=== PATIENT | female | born 1955 | race Asian ===

== ENCOUNTER 2020-04-12 18:29 | Inpatient (IN) | payer BC, MEDICARE ==
[~2020-04-12] VITALS: Ht 154.9 cm; Wt 52.2 kg
[2020-04-12 23:53] VITALS: BP 119/74
--- NOTE | 2020-04-12 23:53 | NUR ---
GPS ADMISSION NOTE, RECEIVED PATIENT FROM [facility] / [place]. PATIENT ARRIVED ON THIS UNIT AT 2353 VIA STRETCHER WITH 2 EMT ESCORTS. PATIENT ADMITTED ON A 5150 HOLD FOR DTS. PER HOLD PATIENT INTENTIONALLY OVERDOSE ON AMOXICILLIN. AFTER HAVING AN ARGUMENT WITH HER AND DAUGHTER. PATIENT DID NOT CALL FOR HELP AFTER OVERDOSE. PATIENT WAS FOUND UNRESPONSIVE BY HER DAUGHTER. 911 WAS CALLED BY DAUGHTER AND PATIENT WAS TAKEN TO [facility]. PATIENT WAS NOT ABLE TO CONTRACT FOR SAFETY AT THAT TIME. THE 5150 WAS REVIEWED AND THE DOCUMENTATION IN THE 5150 HOLD APPEARS TO REFLECT THE PRESENTATION OF THE PATIENT. UPON FACE TO FACE ASSESSMENT PATIENT IS NOTED TO BEING, DEPRESSED, SAD, WELL GROOMED, ORGANIZED, CALM, COOPERATIVE, AND NEEDS LITTLE REDIRECTION. PATIENT IS CURRENTLY LYING IN BED AWAKE, HAS NO S/S OR COMPLAINTS OF PAIN. PATIENT IS DISPLAYING NO S/S OF APPARENT DISTRESS. PATIENT BREATHING IS UNLABORED WITH EQUAL RISE AND FALL OF THE CHEST. PATIENT IS ALERT AND ORIENTATED X 4 ON ROOM AIR. PATIENT ASSISTED WITH TURING AND REPOSITIONING Q2HR AND PRN FOR COMFORT AND CIRCULATION. PATIENT HAS NO NEEDS AT THIS TIME. PATIENT DENIES SUICIDE IDEATIONS AND HOMICIDAL IDEATIONS AT THIS TIME. PATIENT REFUSED TO SIGN ALL NECESSARY PAPER WORK. PATIENT ADVISED OF HER HOLD AND PATIENT RIGHTS BOOKLET GIVEN. PATIENT IS UNDER THE PSYCHIATRIC CARE OF DR. NARANJO AND THE MEDICAL CARE OF DR TALLEY. PATIENT BELONGINGS WERE INVENTORIED AND CHECKED FOR CONTRABAND. ALL CONTRABAND REMOVED AND STORED IN PATIENT HALLWAY LOCKER. PATIENT ADVANCED DIRECTIVES PREFERENCE, IMMUNIZATIONS QUESTIONER, NECESSARY PAPERWORK COMPLETED. PATIENT REFUSED SKIN ASSESSMENT AT THIS TIME. PATIENT ORIENTATED TO ROOM, FLOOR, AND STAFF WITH ALL QUESTIONS ANSWERED. PATIENT HAD INFLUENZA SHOT LAST FEBRUARY AND REFUSED A PNEUMONIA SHOT. OFFER THREE TIMES AND STILL PATIENT REFUSED STATING, " NO I LIKE TO DO THAT SHOT ELSE WHERE ON MY OWN TIME ". EDUCATED THIS PATIENT ON THE RISKS AND BENEFITS OF HAVING A PNEUMONIA SHOT. PATIENT EDUCATED ON THE USE OF THE CALL VU. PATIENT BED SIDE RAILS ARE UP X 2 FOR SAFETY. PATIENT BED IS LOCKED, LOW, AND I WILL CONTINUE TO MONITOR THIS PATIENT Q 15 MIN WITH THE HELP OF STAFF TO MAINTAIN SAFETY.
[2020-04-13] MEDS ORDERED: ATOR20TA PO (01:13)
[2020-04-13] MEDS ORDERED: MAGNESIUM HYDROXIDE 30 ML UDC PO PRN (01:30)
[2020-04-13] MEDS ORDERED: BLOOD SUGAR DIAGNOSTIC 1 EACH STRIP IN ONE (01:30)
[2020-04-13] MEDS ORDERED: ACETAMINOPHEN 325 MG TABLET PO PRN (01:30)
[2020-04-13] MEDS ORDERED: MAG HYDROX/AL HYDROX/SIMETH 30 ML UDC PO PRN (01:30)
[2020-04-13] MEDS ORDERED: ZOLPIDEM TARTRATE 5 MG TABLET PO PRN (01:30)
[2020-04-13] MEDS ORDERED: LORAZEPAM 0.5 MG TABLET PO PRN ×2 (01:30→13:30)
[2020-04-13 08:00] VITALS: BP 122/50
--- NOTE | 2020-04-13 08:57 | NUR ---
RN-CO: DR REHMAN MADE AWARE TO RECONCILE HOME MEDICATIONS OF PT.
--- NOTE | 2020-04-13 09:17 | NUR ---
SW Family Contact: This SW spoke with patient's Soon ([phone]) and daughter Orion at the same time. This SW explained treatment plan and discharge plan.
--- NOTE | 2020-04-13 09:17 | NUR ---
SW Initial Discharge: [place] [address] [place] [address]. Patient Soon ([phone]) is involved in patient's care. Per , he would want pt back home when pt is stable. This SW will work with MD and treatment team to help coordinate discharge.
--- NOTE | 2020-04-13 12:02 | NUR ---
RN-CO: Patient was seen by Dr Han Middleton
[2020-04-13] MEDS: ESCITALOPRAM OXALATE (10 MG) 10 MG TABLET PO SCH ×2 (14:00→14:33)
--- NOTE | 2020-04-13 14:37 | NUR ---
RN-CO: Patient refused Lexapro. She said " I have lucho in [place], I don't need it."
[2020-04-13 16:00] VITALS: BP 115/69
--- NOTE | 2020-04-13 16:03 | NUR ---
UR NOTE: Auth# [id number] obtained from Sharon Brito with [employer] @ [phone] . Days approved are based on Medical necessity. Per Sharon Brito she stated she will approve pt. This LORI sent clinicals to [phone] and [phone]. Addendum: 04/13/20 at 1604 by LORI MORAN Extension number [phone]
--- NOTE | 2020-04-13 19:30 | NUR ---
GPS RN NOTE, RECEIVED PATIENT AWAKE AND IN BED, NO S/S OR COMPLAINTS OF PAIN AT THIS TIME. PATIENT IS DISPLAYING NO S/S OF APPARENT DISTRESS AT THIS TIME. PATIENT BREATHING IS UNLABORED WITH EQUAL RISE AND FALL OF THE CHEST. PATIENT IS ALERT AND ORIENTED X 3 ON ROOM AIR WITH A SPO2 95%. PATIENT IS COMPLIANT WITH MEDICATIONS, DEPRESSED, CALM, AND COOPERATIVE. PATIENT DENIES SUICIDAL AND HOMICIDAL IDEATIONS AT THIS TIME. PATIENT ASSISTED WITH TURNING AND REPOSITIONING Q2HR AND PRN FOR COMFORT AND CIRCULATION. PATIENT HAS NO NEEDS AT THIS TIME. PATIENT EDUCATED ON THE USE OF THE CALL VU. PATIENT BED SIDE RAILS UP X 2 FOR SAFETY. PATIENT BED IS LOCKED, LOW, WITH BED ALARM ON. WILL CONTINUE TO MONITOR THIS PATIENT Q15 MINUTES WITH THE HELP OF STAFF TO MAINTAIN SAFETY.
[2020-04-13 20:06] VITALS: BP 129/76
[2020-04-13 20:44] LABS: BILIRUBIN,URINE NEGATIVE (NEGATIVE); COLOR,URINE YELLOW (YELLOW); LEUKOCYTE ESTERASE ,URINE MODERATE (NEGATIVE); NITRITE, URINE POSITIVE (NEGATIVE); PROTEIN,URINE 100 mg/dl (NEGATIVE); UGLUCOSE NEGATIVE (NEGATIVE); UROBILINOGEN,URINE 0.2 EU/dL (0.2)
[2020-04-13 20:57] LABS: BACTERIA,URINE 4+ /HPF (None Seen); RBC,URINE 51-80 /HPF (0-2); SQUAMOUS EPITHELIAL CELL,UR 0-2 /HPF (None Seen); WBC,URINE TOO NUMEROUS TO COUN /HPF (0-3)
[2020-04-13] MEDS: ATORVASTATIN 10 MG TABLET PO SCH (21:16)
--- NOTE | 2020-04-13 22:34 | NUR ---
GPS RN NOTE, PATIENT UA RESULTS AR FOLLOWS URINE BACTERIA 4 +, URINE WBC ARE TOO NUMEROUS TO COUNT, URINE NITRITE POSITIVE, AND URINE OCCULT BLOOD LARGE. PAGED [facility] AND INFORMED MITCHELL TALLEY DNP OF MY FINDINGS. MITCHELL TALLEY DNP ORDERED KEFLEX 500MG PO BID X 7 DAYS AND TO GIVE THE FIRST DOSE NOW. ALL ORDERS NOTED AND CARRIED OUT. WILL CONTINUE TO MONITOR THIS PATIENT.
[2020-04-13] MEDS: CEPHALEXIN MONOHYDRATE 250 MG CAPSULE PO SCH (23:15)
[2020-04-14 08:06] LABS: BASOPHILS % (AUTO) 0.3 % (0.0-2.0); EOSINOPHILS % (AUTO) 0.2 % (0.0-6.0); HEMATOCRIT 41 % (33-45); HEMOGLOBIN 13.3 g/dL (11.5-14.8); LYMPHOCYTES % (AUTO) 20.5 % (20.0-44.0); MEAN CORPUSCULAR HGB CONC 33 g/dl (31.0-36.0); MEAN CORPUSCULAR VOLUME 92 fL (82-100); MONOCYTES # (AUTO) 0.2 /CMM (0.1-1.30); MONOCYTES % (AUTO) 4.3 % (2.0-12.0); NEUTROPHILS # (AUTO) 3.6 /CMM (1.8-8.9); NEUTROPHILS % (AUTO) 74.7 % (43.0-81.0); PLATELET COUNT (AUTO) 155 /CMM (150-450); RED BLOOD CELL COUNT(AUTO) 4.39 MIL/uL (4.0-5.2); WHITE BLOOD COUNT (AUTO) 4.9 K/uL (4.3-11.0)
[2020-04-14] MEDS: CEPHALEXIN MONOHYDRATE 250 MG CAPSULE PO SCH ×2 (08:13→16:13)
[2020-04-14] MEDS: ESCITALOPRAM OXALATE (10 MG) 10 MG TABLET PO SCH ×2 (08:17→09:05)
[2020-04-14 08:18] LABS: CALCIUM, SERUM 9.1 mg/dL (8.5-10.1); CREATININE 0.7 mg/dL (0.6-1.3); POTASSIUM 3.6 mmol/L (3.5-5.1)
--- NOTE | 2020-04-14 09:07 | NUR ---
GPS RN NOTES PATIENT EARLIER REFUSED HER LEXAPRO 5MG P.O., DR NARANJO CAME AND SPOKE TO PT TO TAKE THE MEDICINE AND SHE AGREED. LEXAPRO 5MG WAS GIVEN. WILL CONTINUE TO MONITOR.
[2020-04-14 09:59] VITALS: BP 131/68
--- NOTE | 2020-04-14 10:22 | NUR ---
UR NOTE: Auth# [id number] obtained from Sharon Brito with [facility] @ [phone] extension [phone], . Days approved are based on Medical necessity. Per Sharon Brito she stated she will approve pt. This SW sent clinicals to [phone] and [phone]. This SW left a voicemail that clinicals were sent and if Sharon can call back to confirm.
--- NOTE | 2020-04-14 13:10 | NUR ---
RN NOTES PATIENT SEEN BY DR NARANJO THIS MORNING AND PLACED PT ON 14DAY HOLD( 9316).
[2020-04-14 16:37] VITALS: BP 112/78
[2020-04-14 19:55] VITALS: BP 137/79
[2020-04-14] MEDS: ATORVASTATIN 10 MG TABLET PO SCH (21:23)
--- NOTE | 2020-04-14 22:00 | NUR ---
RN NOTES : PT. C/O LEFT ARM RASH , MITCHELL TALLEY IN THE UNIT AND NOTIFIED TO HIM, NO NEW ORDERS GIVEN , WILL CONTINUE TO MONITOR.
--- NOTE | 2020-04-15 06:30 | NUR ---
RN NOTES : PT. TOOK SHOWER AND REPORTED RASH GETTING BETTER , PT. DENIES ANY PAIN DISCOMFORT AND RESTING WELL IN SHIFT. WILL CONTINUE TO MONITOR.
--- NOTE | 2020-04-15 06:44 | NUR ---
GPS RN NOTES: PT. RESTING IN HER ROOM, CALM NOTED AT THIS TIME . NO S/S OF DISTRESS NOTED . PT. CALM COOPERTIVE,NO CHANGE OF CONDITION NOTED ,AND NO BEHAVIOR PROBLEMS NOTED, ALL CARE NEEDS MET ANTICIPATED, WILL CONTINUE TO MONITOR FOR SAFETY BEHAVIOR, AND ENDORSE TO AM SHIFT FOR CONTINUITY OF CARE.
[2020-04-15 08:00] VITALS: BP 123/75
[2020-04-15] MEDS: ESCITALOPRAM OXALATE (10 MG) 10 MG TABLET PO SCH (08:22)
[2020-04-15] MEDS: CEPHALEXIN MONOHYDRATE 500 MG CAPSULE PO SCH ×3 (10:11→21:19)
[2020-04-15 12:00] VITALS: BP 122/85
[2020-04-15 20:00] VITALS: BP 125/67
[2020-04-15 20:27] VITALS: BP 125/67
[2020-04-15] MEDS: ATORVASTATIN 10 MG TABLET PO SCH (21:20)
--- NOTE | 2020-04-16 05:51 | NUR ---
GPS RN NOTE PATIENT IS SHOWERING AT THIS TIME. CONTINUING TO MONITOR FOR ANY CHANGES.
--- NOTE | 2020-04-16 05:58 | NUR ---
GPS RN NOTE PATIENT IS FINISHED SHOWERING & BACK IN HER ROOM.
[2020-04-16 08:00] VITALS: BP 131/76
[2020-04-16] MEDS: CEPHALEXIN MONOHYDRATE 500 MG CAPSULE PO SCH ×2 (08:53→21:04)
[2020-04-16] MEDS: ESCITALOPRAM OXALATE (10 MG) 10 MG TABLET PO SCH (08:56)
[2020-04-16 16:00] VITALS: BP 110/60
[2020-04-16 20:19] VITALS: BP 145/78
[2020-04-16] MEDS: ATORVASTATIN 10 MG TABLET PO SCH (21:04)
[2020-04-17 08:00] VITALS: BP 135/76
[2020-04-17] MEDS: CEPHALEXIN MONOHYDRATE 500 MG CAPSULE PO SCH ×2 (08:59→20:41)
[2020-04-17] MEDS: ESCITALOPRAM OXALATE (10 MG) 10 MG TABLET PO SCH (09:00)
--- NOTE | 2020-04-17 10:12 | NUR ---
Individual Intervention: SW met with the pt at bedside with RN who speaks romanian. Pt stated that she wanted to be discharged home as she is not feeling depressed or suicidal anymore. She states that she took medication and did not realize what was happening. Pt states that the MD stated that she would be released tomorrow. SW stated that she will confirm and arrange her discharge.
--- NOTE | 2020-04-17 10:14 | NUR ---
UR NOTE: Auth# [id number]. LORI faxed clinicals to [employer] with attention to foster care case manager Sharon Brito ([phone]) to the fax number: and . Days approved are based on Medical necessity.
[2020-04-17 16:04] VITALS: BP 145/84
[2020-04-17 20:25] VITALS: BP 150/86
[2020-04-17] MEDS: ATORVASTATIN 10 MG TABLET PO SCH (20:41)
[2020-04-18 08:00] VITALS: BP 143/72
[2020-04-18] MEDS: CEPHALEXIN MONOHYDRATE 500 MG CAPSULE PO SCH ×2 (08:49→20:26)
[2020-04-18] MEDS: ESCITALOPRAM OXALATE (10 MG) 10 MG TABLET PO SCH (08:53)
--- NOTE | 2020-04-18 09:43 | NUR ---
Family Contact: LORI called the patient's Soon ([phone]) and informed him that the pt is going to be discharged the next day. He stated that he would arrive around 11am to pick her up.
--- NOTE | 2020-04-18 12:37 | NUR ---
UR NOTE: Auth# [id number]. LORI faxed clinicals to [employer] with attention to caser up Sharon Brito ([phone]) to the fax number: and . Days approved are based on Medical necessity.
--- NOTE | 2020-04-18 12:47 | NUR ---
UR Note: SW called [employer] produce department manager Sharon Brito ([phone] ext [phone]) and left a voicemail inquiring if the clinicals are being received and if the pt can be referred to a psychiatrist.
[2020-04-18 16:00] VITALS: BP 123/75
[2020-04-18] MEDS: ATORVASTATIN 10 MG TABLET PO SCH (20:27)
[2020-04-18 20:44] VITALS: BP 123/77
[2020-04-19 08:00] VITALS: BP 117/59
[2020-04-19] MEDS: CEPHALEXIN MONOHYDRATE 500 MG CAPSULE PO SCH (08:27)
[2020-04-19] MEDS: ESCITALOPRAM OXALATE (10 MG) 10 MG TABLET PO SCH (08:27)
--- NOTE | 2020-04-19 09:34 | NUR ---
Social Work Discharge Plan Patient will be picked up by her and son at 11.00 am today. This dialysis social worker called patient's , Soon ( [phone]) and he confirmed that he will be picking pt up today and he is ready to care for her at home. She will follow up with her PMD, Dr Cantor Bryan Gonzales. Patient does not have an outpatient psychiatrist. This dialysis social worker left a message for Sharon LEO major case detective ) to call and provide referrals for outpatient psychiatry. Patient [place] [address] [facility] [address]. Patient is cooperative, able to perform all ADLS and alert and oriented x3. She is not meeting any acute criteria to remain in the hospital.
--- NOTE | 2020-04-19 09:59 | NUR ---
RN-CO: Patient is alert and oriented x 4, able to make needs known and self care. Dr Her seen and examined pt with order to discontinue hold and discharge pt today noted and carried out. Patient has appropriate affect, cooperative to care and calm. She denies auditory and visual hallucinations. Denies suicidal and homicidal ideations. No acute distress noted and medically cleared for discharge by Rupa Sandoval INTERIOR DESIGN FACULTY MEMBER. Her prescription was discussed to her as well as her follow up appointment to biochemical development engineer and psychiatrist. Rupa Sandoval discontinue her Keflex. All belongings will be given back to her. Health teachings was discussed and she verbalized understanding.
--- NOTE | 2020-04-19 10:34 | NUR ---
Social Work UR Note UR Note : Authorization number : [id number] Her's discharge summary was faxed to [phone] for attention: Sharon Brito This social secretary also left her a voicemail regarding the patient's discharge and also requested that case assistant provide and patient with a contracted outpatient psychiatrist.
--- NOTE | 2020-04-19 11:06 | NUR ---
RN-CO: SON WAS PAPER COATING MACHINE OPERATOR BY [employer].
--- NOTE | 2020-04-20 09:38 | NUR ---
UR NOTE: Auth# [id number]. OLRI faxed discharge clinicals to [employer] with attention to rehabilitation case coordinator Sharon Brito ([phone]) to the fax number: and .
== END 2020-04-19 11:01 | disposition home or self-care (01) | DRG 885 ==
LOC: GPS 23:44
PROVIDERS: ADMIT Psychiatry & Neurology Psychiatry; ATTEND Registered Nurse
DX: F33.2 Major depressive disorder, recurrent severe without psychotic features (principal); N39.0 Urinary tract infection, site not specified; F41.9 Anxiety disorder, unspecified; E78.5 Hyperlipidemia, unspecified; B96.20 Unspecified Escherichia coli [E. coli] as the cause of diseases classified elsewhere; T43.2 Poisoning by, adverse effect of and underdosing of other and unspecified antidepressants
CPT/HCPCS: 36415; 80048-TC; 80061-TC; 81001; 82962-TC; 84443-TC; 85025-TC; 87081-TC; 87086-TC; 87186-TC